=== PATIENT | male | born 1965 | race Caucasian/White ===

== ENCOUNTER 2019-06-04 10:47 | Observation (INO) | payer BC ==
[2019-06-04 11:17] LABS: ABS Eosinophils 0.1 10^3/ul (0-0.6); ABS Lymphocytes 1.1 10^3/ul (1.0-4.8); ABS Monocytes 0.5 10^3/ul (0-0.8); ABS Neutrophils 3.6 10^3/ul (1.5-7.7); Eosinophil % 1.2 %; Hematocrit 44 % (42-52); Hemoglobin 14.8 g/dL (14.0-18.0); Lymphocyte % 20.6 %; Mean Corpuscular HGB Conc 34 g/dL (31-36); Mean Corpuscular Hemoglobin 30 pg (27-31); Mean Corpuscular Volume 89 fL (80-94); Mean Platelet Volume 8.6 fL (7.4-10.4); Nucleated Red Blood Cells % 0.1; Platelet Count 220 10^3/uL (150-450); Red Blood Count 4.94 10^6 /uL (4.18-5.48); Red Cell Distribution Width 13 % (10-15); White Blood Count 5.3 10^3/uL (3.5-10.8)
[2019-06-04] MEDS ORDERED: Aspirin 81 mg CHEW TAB* 81 MG TAB.CHEW PO ONE (11:18)
--- NOTE | 2019-06-04 11:19 | ED ---
HPI Chest Pain - HPI Summary HPI Summary: Patient is a 54 y/o M presenting to the ED for a chief complaint of intermittent non-radiating left anterior chest pain that began on the morning of 06/04/19 around 05:30. Patient is present with his . He describes the chest pain as a burning sensation and rates his current chest pain as 1/10 in severity. Patient denies any fever, chills, diaphoresis, erythema of eyes, sore throat, SOB, cough, abdominal pain, N/V, dysuria, hematuria, myalgia, edema, rash, or dizziness. Patient took 2 NTG at home with some relief. He reports chest pain in the past that improved with exercise. He regularly runs for exercise. PMHx is significant for angina, coronary artery disease, and hypercholesterolemia. FMHx is significant for cardiac disease and aneurysm. He is unsure if he had an MN because of changes in exercise tolerance around the time that prior episodes of chest pain began. He states there was an attempt to place cardiac stents in the past without success. Patient sees Dr. Moore who he last saw 2 months ago. Patient believes he is due for a cardiac stress test. - History of Current Complaint Chief Complaint: EDChestPainROMI Time Seen by Provider: 06/04/19 10:53 Hx Obtained From: Patient Onset/Duration: Started Minutes Ago, Atraumatic, Still Present Timing: Intermittent Initial Severity: Mild Current Severity: Mild Pain Intensity: 1 Pain Scale Used: 0-10 Numeric Chest Pain Location: Left Anterior Chest Pain Radiates: No Character: Burning Aggravating Factor(s): Nothing Alleviating Factor(s): NTG 123, Other: - Exertion Associated Signs and Symptoms: Positive: Chest Pain. Negative: Dizziness, Shortness of Breath, Fever, Chills, Diaphoresis, Nausea, Cough, Abdominal Pain, Vomiting, Edema - Allergy/Home Medications Allergies/Adverse Reactions: Allergies Allergy/AdvReac Type Severity Reaction Status Date / Time fluticasone Allergy Itching Verified 06/04/19 13:25 phenytoin Allergy Swelling Verified 06/04/19 13:25 Of Face,Lips,& Throat salmeterol Allergy Itching Verified 06/04/19 13:25 valproic acid Allergy Blisters Verified 06/04/19 13:25 seasonal allergies Allergy Sneezing, Uncoded 05/11/16 13:05 Runny nose, Inflammed sinus cavity Home Medications: Home Medications Ranolazine [Ranolazine ER] 500 mg PO DAILY 06/04/19 [History Confirmed 06/04/19] PMH/Surg Hx/FS Hx/Imm Hx Previously Healthy: Yes Endocrine/Hematology History: Denies: Hx Diabetes Cardiovascular History: Reports: Hx Angina - in past,felt r/t to GERD, Hx Coronary Artery Disease, Hx Hypercholesterolemia Denies: Hx Hypertension, Hx Myocardial Infarction, Hx Valvular Heart Disease Respiratory History: Reports: Hx Asthma Denies: Hx Chronic Obstructive Pulmonary Disease (COPD) Musculoskeletal History: Reports: Hx Arthritis - LOWER BACK Denies: Hx Rheumatoid Arthritis, Hx Osteoporosis Sensory History: Reports: Hx Contacts or Glasses - READING GLASSES Denies: Hx Legally Blind, Hx Deafness, Hx Hearing Aid Opthamlomology History: Reports: Hx Contacts or Glasses - READING GLASSES Denies: Hx Legally Blind EENT History: Denies: Hx Deafness Neurological History: Reports: Hx Seizures - as a child, none for 20+ years - Surgical History Surgical History: Yes Surgery Procedure, Year, and Place: FX LT THUMB 1980 Hx Anesthesia Reactions: No Infectious Disease History: No Infectious Disease History: Denies: Hx Shingles, Hx Tuberculosis, History Other Infectious Disease, Traveled Outside the [place] in Last 30 Days - Family History Known Family History: Positive: Cardiac Disease, Other - Aneurysm - Social History Occupation: Employed Full-time Lives: With Family Alcohol Use: Occasionally Hx Substance Use: No Substance Use Type: Reports: None Hx Tobacco Use: No Smoking Status (MU): Never Smoked Tobacco Have You Smoked in the Last Year: No Review of Systems Negative: Fever, Chills, Skin Diaphoresis Negative: Erythema Negative: Sore Throat Positive: Chest Pain - Left anterior Negative: Shortness Of Breath, Cough Negative: Abdominal Pain, Vomiting, Nausea Negative: dysuria, hematuria Negative: Myalgia, Edema Negative: Rash Neurological: Other - Negative dizziness All Other Systems Reviewed And Are Negative: Yes Physical Exam - Summary Physical Exam Summary: Constitutional: Well-developed, Well-nourished, Alert.(-) Distressed Skin: Warm, Dry HENT: Normocephalic; Atraumatic Eyes: Conjunctiva normal Neck: Musculoskeletal ROM normal neck. (-) JVD, (-) Stridor, (-) Tracheal deviation Cardio: Rhythm regular, rate normal, Heart sounds normal; Intact distal pulses; The pedal pulses are 2+ and symmetric. Radial pulses are 2+ and symmetric. (-) Murmur Pulmonary/Chest wall: Effort normal. (-) Respiratory distress, (-) Wheezes, (-) Rales Abd: Soft, (-) tenderness, (-) Distension, (-) Guarding, (-) Rebound Musculoskeletal: (-) Edema Lymph: (-) Cervical adenopathy Neuro: Alert, Oriented x3 Psych: Mood and affect Normal Triage Information Reviewed: Yes Vital Signs On Initial Exam: Initial Vitals Temp Pulse Resp BP Pulse Ox 97.5 F 72 14 142/83 98 06/04/19 10:53 06/04/19 10:53 06/04/19 10:53 06/04/19 10:53 06/04/19 10:53 Vital Signs Reviewed: Yes Procedures - Sedation Patient Received Moderate/Deep Sedation with Procedure: No Diagnostics - Vital Signs Vital Signs Temp Pulse Resp BP Pulse Ox 06/04/19 10:53 97.5 F 72 14 142/83 98 - Laboratory Result Diagrams: 06/04/19 11:04 06/04/19 11:04 Lab Statement: Any lab studies that have been ordered have been reviewed, and results considered in the medical decision making process. - Radiology Chest X-ray Radiology Interpretation Completed By: Radiologist Summary of Radiographic Findings: Chest X-ray IMPRESSION: 1. No focal airspace opacification. 2. Although magnified, the cardiac silhouette appears slightly enlarged. Reviewed by Dr. Gannon. - CT Chest/Abdomen/Pelvis CTA CT Interpretation Completed By: Radiologist Summary of CT Findings: Chest/Abdomen/Pelvis CTA IMPRESSION: 1. NO AORTIC ANEURYSM OR DISSECTION IS IDENTIFIED. 2. CORONARY ARTERY DISEASE. 3. NO ACUTE OCCLUSIVE DISEASE OR SEVERE STENOSIS ALONG THE PROXIMAL BRANCHING VESSELS OF THE AORTA. Reviewed by Dr. Gannon. - EKG 10:50 Cardiac Rate: NL - 67 BPM EKG Rhythm: Sinus Rhythm ST Segment: Normal Ectopy: None Summary of EKG Findings: EKG at 10:50 shows 67 BPM with normal sinus rhythm, no STEMI. Reviewed and interpreted by Dr. Gannon. Chest Pain Course/Dx - Course Course Of Treatment: Patient is a 54 y/o M presenting to the ED for a chief complaint of intermittent non-radiating left anterior chest pain that began on the morning of 12/01/19 around 05:30. Patient is present with his . He describes the chest pain as a burning sensation and rates his current chest pain as 1/10 in severity. Patient denies any fever, chills, diaphoresis, erythema of eyes, sore throat, SOB, cough, abdominal pain, N/V, dysuria, hematuria, myalgia, edema, rash, or dizziness. Patient took 2 NTG at home with some relief. He reports chest pain in the past that improved with exercise. He regularly runs for exercise. PMHx is significant for angina, coronary artery disease, and hypercholesterolemia. FMHx is significant for cardiac disease and aneurysm. He is unsure if he had an MN because of changes in exercise tolerance around the time that prior episodes of chest pain began. He states there was an attempt to place cardiac stents in the past without success. Patient sees Dr. Moore who he last saw 2 months ago. Patient believes he is due for a cardiac stress test. On exam, unremarkable findings. In the ED course, patient was given aspirin 81 mg PO, nitroglycerin 0.4 mg SL, nitroglycerin 1 inch TOPICAL, and omnipaque 100 ml IV. Laboratory abnormal findings: glucose 105. EKG at 10: 50 shows 67 BPM with normal sinus rhythm, no STEMI. Chest X-ray IMPRESSION: 1. No focal airspace opacification. 2. Although magnified, the cardiac silhouette appears slightly enlarged. Chest/Abdomen/Pelvis CTA IMPRESSION: 1. NO AORTIC ANEURYSM OR DISSECTION IS IDENTIFIED. 2. CORONARY ARTERY DISEASE. 3. NO ACUTE OCCLUSIVE DISEASE OR SEVERE STENOSIS ALONG THE PROXIMAL BRANCHING VESSELS OF THE AORTA. Patients chest discomfort is out of character for coronary artery disease. There are no features or aortic dissection, but given the family history, patient will likely be admitted. At 13:35, patients case was reviewed by Zena Maria NP who agrees to admit the patient to [facility] with a diagnosis of chest pain. Patient will be admitted to [facility] with a diagnosis of chest pain. - Diagnoses Provider Diagnoses: Chest pain - Provider Notifications Discussed Care Of Patient With: Zena Maria - At 13:35, patients case was reviewed by Zena Maria NP who agrees to admit the patient to [facility] with a diagnosis of chest pain. Time Discussed With Above Provider: 13:35 Instructed by Provider To: Admit As Observation Discharge ED - Sign-Out/Discharge Documenting (check all that apply): Patient Departure - Admit - Discharge Plan Condition: Stable Disposition: ADMITTED TO [facility] Referrals: Jayden Zeng MD [Primary Care Provider] - - Attestation Statements Document Initiated by Scribe: Yes Documenting Scribe: Katya Godwin Provider For Whom Scribe is Documenting (Include Credential): Paul Gannon MD Scribe Attestation: Katya Briggs, scribed for Paul Gannon MD on 06/04/19 at 1339. Status of Scribe Document: Ready
[2019-06-04 11:28] LABS: Albumin 4.6 g/dL (3.2-5.2); Albumin/Globulin Ratio 1.8 (1-3); BUN/Creatinine Ratio 11.8 (8-20); Calcium 9.9 mg/dL (8.6-10.3); EGFR African American 102.5 (>60); EGFR Non-African American 84.7 (>60); Globulin 2.5 g/dL (2-4); Potassium 4.6 mmol/L (3.5-5.0); Total Bilirubin 0.6 mg/dL (0.2-1.0); Total Protein 7.1 g/dL (6.4-8.9)
[2019-06-04 11:30] LABS: Troponin I 0.01 ng/mL (<0.03)
[2019-06-04] MEDS ORDERED: Iohexol 350* (CONTRAST) 500 ML MDV IV ONE (11:32)
[2019-06-04] MEDS: Nitroglycerin TAB 0.4 MG* 0.4 MG TAB SL ONE ×2 (11:36→12:03)
[2019-06-04] MEDS ORDERED: Nitro 2% OINT* (Nitroglycerin) 1 INCH/PAK PAK TOPICAL ONE (12:15)
[2019-06-04] MEDS: Heparin VIAL(*) 5000 UNITS/ML VIAL (FIVE THOUSAND) SUBCUT SCH ×2 (15:56→20:45)
--- NOTE | 2019-06-04 17:17 | HP ---
CC: Dr. Zeng; Dr. Moore * [facility] MEDICINE HISTORY AND PHYSICAL: DATE OF ADMISSION: 06/04/19 PRIMARY CARE PROVIDER: Dr. Zeng. TAX ACCOUNTANT: Dr. Moore. ATTENDING PHYSICIAN: Dr. Tressa Gutierres * (dictation provided by Zena Maria NP ). CHIEF COMPLAINT: Chest pain. HISTORY OF PRESENT ILLNESS: Mr. Roger is a 54-year-old male with a past medical history of angina and known coronary artery disease with subtotally occluded right RCA and moderate lesion to LAD, who presents today to the hospital with concern for chest pain. Mr. Roger confirms that he had original stress testing and cardiac catheterization in our hospital in 2017, which as noted showed that he had a subtotal right RCA occlusion and moderate lesion to the LAD. At that time, the patient was transferred for consultation to [facility]. The patient states that angioplasty was attempted, but was unsuccessful there. The recommendation was that he could return if he was interested, but he has decided to pursue maximal medical therapy with Dr. Moore. Thus far, he had an abnormal stress echo in 2018 which was consistent with inferior ischemia, but this did show interval improvement from prior. He has since seen Cyndee Hernandez NP on 03/10/19, and at that time, he was doing well and described that he was jogging, running 3 to 5 miles a day at a 10 mile pace with no angina. He states that he has had a long symptom-free period until about 2 weeks ago when he again started having angina. He states actually that the angina is random and that it actually improves with activity. For this, he has taken up to 2 nitroglycerin tablets at a time with good success. This morning he awoke at 6 a.m. with chest discomfort, did not radiate into his arm or neck, it was not associated with diaphoresis or shortness of breath. He got up and did some chores around the home. He took 1 nitroglycerin, which was not effective. He took a second nitroglycerin that was effective; however, after 2 hours his chest pain returned and he grew more concerned and decided to come to the emergency room for evaluation. In the emergency room, Mr. Roger had a chest x-ray that showed no acute intrathoracic process. He had an EKG which showed a sinus rhythm with no evidence of ischemia. He had a chest, abdomen, and pelvis CTA that was negative. He had labs that showed a normal troponin and no other significant abnormality. His vitals are stable. He was given nitroglycerin x2 and now has a nitroglycerin patch and is chest pain free. PAST MEDICAL HISTORY: 1. Hyperlipidemia. 2. Hypertension. 3. Coronary artery disease. MEDICATIONS OUTPATIENT: 1. Albuterol inhaler p.r.n. 2. Mometasone 110 mcg metered dose inhaler 2 puffs p.o. b.i.d. p.r.n. 3. Mometasone nasal spray p.r.n. 4. Nitroglycerin p.r.n. 5. Ranexa ER 500 mg p.o. daily. 6. Amlodipine 5 mg p.o. daily. 7. Aspirin 81 mg p.o. daily. 8. Metoprolol succinate 25 mg p.o. q.a.m. 9. Rosuvastatin 40 mg p.o. daily. ALLERGIES: FLUTICASONE, PHENYTOIN, SALMETEROL, VALPROIC ACID. FAMILY HISTORY: The patient reports his maternal grandfather in his 50s related to heart disease. His father in his 70s related to an aneurysm. His mother is alive and well. SOCIAL HISTORY: The patient has never been a smoker, no report of alcohol or drug use. He lives with his Cary who is his healthcare proxy. REVIEW OF SYSTEMS: A 14-point review of systems was completed with Mr. Roger and all those not mentioned above were negative. PHYSICAL EXAMINATION GENERAL: Mr. Roger is sitting on the bed. Again, he is chest pain free. He is in no acute distress. His Cary is at the bedside. VITAL SIGNS: Temperature 97.5, pulse rate 58, respiratory rate 12, O2 saturation 97% on room air, blood pressure 121/84. HEENT: Extraocular movements are intact. LUNGS: Clear to auscultation bilaterally with no accessory muscle use and good aeration. HEART: S1, S2. No murmur, rub, or gallop and regular. ABDOMEN: Soft, nontender with bowel sounds positive x4. EXTREMITIES: No cyanosis or edema. NEUROLOGIC: He is alert. He is oriented x3. He moves all extremities equally. There is no facial asymmetry or focal weakness. SKIN: Intact. DIAGNOSTIC STUDIES/LAB DATA: Sodium 139, potassium 4.6, chloride 103, serum bicarbonate 30, BUN 11, creatinine 0.93, glucose 105, first troponin at 1104 is 0.01. WBC 5.3, hemoglobin 14.8, hematocrit 44, platelet count 220. Chest x-ray shows "no focal airspace opacification. Although magnified, the cardiac silhouette appears slightly enlarged." The EKG shows "a sinus rhythm with a heart rate of about 65 and no evidence of ischemia." The chest, abdomen , and pelvis CTA shows "no aortic aneurysm or dissection is identified. Coronary artery disease. No acute occlusive disease or severe stenosis along the proximal branching vessels of the aorta." ASSESSMENT: Mr. Roger is a 54-year-old male with no medical history of coronary artery disease with subtotal occlusion of the right right coronary artery and moderate lesion to the left anterior descending artery, who is on medical therapy and monitored by Dr. Moore, who presents today to the hospital with concern for chest pain at rest. Our plans are for observation in the hospital for the followin. Chest pain: The patient has been noticing chest pain, but has not been associated with activity. He wonders whether or not the chest pain could be related to the cold weather or provoked by cold weather in part. Regardless, his testing thus far is negative, his EKG is negative, troponin is negative. Plan is for q.3 hours troponin with EKGs x2. He will have aspirin in the morning. He will go on for an exercise nuclear stress test tomorrow a.m. I anticipate that he will need cardiac consultation after the stress test as I presume it would be abnormal based on his history, but I have not called Cardiology tonight based on the negative workup thus far. 2. Hypertension: Plan to continue amlodipine, metoprolol. 3. Hyperlipidemia: Plan to continue auto substitute for rosuvastatin. TIME SPENT: Approximately 60 minutes were spent on the admission of this patient, more than half the time was spent with the patient at the bedside reviewing the events leading up to this hospitalization, performing the physical examination, and reviewing my plan of care. ZENA MARIA NP [id number]/[facility] #: [id number] ORALIA
[2019-06-04] MEDS: Metoprolol Succinate XL TAB* 25 MG PO SCH (20:39)
[2019-06-04] MEDS: Ranolazine (NF) 500 MG TAB PO SCH (20:40)
[2019-06-05] MEDS: Heparin VIAL(*) 5000 UNITS/ML VIAL (FIVE THOUSAND) SUBCUT SCH ×2 (04:56→15:21)
[2019-06-05] MEDS ORDERED: Aspirin EC TAB* 81 MG TAB.EC PO SCH (09:00)
[2019-06-05] MEDS ORDERED: Metoprolol Succinate XL TAB* 25 MG PO SCH (09:00)
[2019-06-05] MEDS ORDERED: Atorvastatin* 80 MG TAB PO SCH (09:00)
[2019-06-05] MEDS ORDERED: CMC:Ranolazine (NF) 500 MG TAB PO SCH (09:00)
[2019-06-05] MEDS ORDERED: amLODIPine TAB* 5 MG PO SCH (09:00)
[2019-06-05] MEDS: Ranolazine (NF) 500 MG TAB PO SCH (10:52)
[2019-06-05] MEDS: Metoprolol Succinate XL TAB* 25 MG PO SCH (10:52)
[2019-06-05 11:54] VITALS: BP 115/70
--- NOTE | 2019-06-05 18:47 | CONS ---
CC: Dr. Zeng; Dr. Moore * CARDIOLOGY CONSULTATION: DATE OF CONSULT: 06/05/19 INDICATION FOR CONSULTATION: Chest pain, coronary artery disease. HISTORY OF PRESENT ILLNESS: The patient is a 54-year-old gentleman with a history of coronary artery disease, history of a known occluded right coronary artery and a moderate LAD lesion. The patient was admitted to the hospital yesterday with an episode of chest pain. The patient states that he was out of his house in the morning and started feeling some atypical chest pain. He took 1 sublingual nitroglycerin and then about 5 minutes later took a second sublingual nitroglycerin. His pain mostly resolved; however, later in the morning, his pain started to increase, and at that point, he decided to come to the emergency room. On arrival to the emergency room, his EKG did not show any significant changes from previous EKGs, definitely no evidence of ST segment elevation. His troponin levels were negative. This morning, the patient underwent an exercise nuclear stress test. The patient exercised for 13 minutes. He had no chest pain. He had some minor EKG changes, but nothing definitive for ischemia. His nuclear images did show a small to moderate area of ischemia to his inferior wall that was completely reversible on his resting images. This is consistent with his known occluded right coronary artery. In speaking with the patient this afternoon, he denies any chest pain or shortness of breath. No orthopnea or PND. No palpitations. No lightheadedness , dizziness, or syncope. As part of his workup, the patient got a CTA of his chest, abdomen, and pelvis that was negative, no evidence of pulmonary embolism. PAST MEDICAL HISTORY: Significant for: 1. Hypertension. 2. Hyperlipidemia. 3. Coronary artery disease. OUTPATIENT MEDICATIONS: 1. Albuterol inhaler nasal spray. 2. Ranexa 500 mg once a day. 3. Amlodipine 5 mg a day. 4. Aspirin 81 mg a day. 5. Metoprolol succinate 25 mg once a day. 6. Crestor 40 mg a day. ALLERGIES: PHENYTOIN, SALMETEROL, VALPROIC ACID. FAMILY HISTORY: His grandfather in his 50s of heart disease. Father in his 70s of an aneurysm. His mother is alive and well. SOCIAL HISTORY: Denies tobacco or alcohol use. He exercises on a regular basis. He is . REVIEW OF SYSTEMS: Negative for fevers and chills. Negative for changes in bowel or bladder habits. Negative for change in weight. Other 12-point review is unremarkable. PHYSICAL EXAMINATION: Height is 61 inches, weight 231 pounds, temperature 97.9 , heart rate is 67, blood pressure 128/65, respiratory rate is 16, oxygen saturation 99% on room air. Sclerae anicteric. Oropharynx is pink without erythema. Carotids are 2+ without bruits. JVD is normal. Thyroid is normal. Cardiac Exam: S1, S2 without any murmurs, rubs, or gallops. Lungs are clear to auscultation bilaterally. There is no dullness to percussion. Abdomen is soft, nontender, nondistended with normoactive bowel sounds. Extremities show no edema. He has 2+ pulses throughout. The patient is awake, alert, and oriented. He moves all 4 extremities equally. LABORATORY STUDIES: Chemistry is within normal limits. Troponins are negative x4. CBC within normal limits. IMPRESSION: This is a 54-year-old gentleman with a history of known coronary artery disease, who came to the hospital because of angina. The patient ruled out for a myocardial infarction. He had no ischemic EKG changes. His exercise nuclear stress test is as to be expected with his known anatomy. At this point, I do not think any other cardiac testing is necessary. I do not think the patient needs a cardiac catheterization. The patient will follow up as an outpatient with Dr. Moore regarding ongoing medical care. [id number]/[facility] #: [id number] MTDD
--- NOTE | 2019-06-05 19:53 | DS ---
CC: Dr. Jayden Zeng; Dr. Panda Moore * DISCHARGE SUMMARY: DATE OF ADMISSION: 06/04/19 DATE OF DISCHARGE: 06/05/19 PRIMARY CARE PROVIDER: Dr. Jayden Zeng. LOGGING EQUIPMENT OPERATOR: Dr. Panda Moore. ATTENDING PHYSICIAN: Dr. Tomas Galeano.* (DICTATED BY LIZBETH MICHAUD NP) PRIMARY DIAGNOSIS: 1. Chest pain, presumed cardiac in a patient with known coronary artery disease. SECONDARY DIAGNOSES: 1. Hyperlipidemia. 2. Hypertension. STUDIES WHILE IN THE HOSPITAL: 1. Chest x-ray on 06/04/19 reads as no focal airspace opacification. Although magnified, the cardiac silhouette appears slightly enlarged. 2. EKG on 06/04/19 shows normal sinus rhythm with a rate of 67, first degree AV block, minimal ST elevation in anterior leads. 3. Chest, abdomen, and pelvis CTA on 06/04/19 reads as no aortic aneurysm or dissection is identified. Coronary artery disease. No acute occlusive disease or severe stenosis along the proximal branching vessels of the aorta. 4. Nuclear cardiac stress test done on 06/05/19 reads as moderate region of stress- induced ischemia at the junction of the inferior and lateral gama from the apical through the basilar segments. Associated hypokinesis. The left ventricular ejection fraction remains within normal limits at 61%. Assessment is intermediate risk based on nuclear portion. HISTORY OF PRESENT ILLNESS AND HOSPITAL COURSE: Mr. Roger is a 54-year-old male with past medical history of hypertension, hyperlipidemia and coronary artery disease, who presented to the emergency room on 06/04/19 with complaints of chest pain. Please see the history and physical by Zena Maria NP for a complete summary of the events leading up to this hospitalization. In short, the patient does have known coronary artery disease with a subtotal RCA occlusion and moderate lesion to the LAD. In 2017, the patient had a cardiac catheterization at [facility], angioplasty was attempted, but was unsuccessful at that point. Since that time, the patient has been on maximal medical therapy with his top waddy, Dr. Moore. He reportedly has been exercising daily until about 2 weeks ago when he started having some angina. He noted that sometimes it is improved with activity, though also improved with nitro. On the morning of presentation, he awoke with chest pain and took 2 nitro which were ineffective and so he presented to the emergency room. In the emergency room, he had imaging as noted above. He did have a troponin noted to be negative at 0.01. Lab work was otherwise unremarkable and vital signs were stable. Because of the patient's history, he was admitted by the hospitalist service. The patient's pain resolved in the emergency room last night and he did not have any recurrent pain overnight. He had an exercise nuclear cardiac stress test today. He was able to complete 13 minutes without chest pain. Nuclear portion as noted above is intermediate risk due to some stress-induced ischemia in the inferior and lateral gama. This was not unexpected based on his history. I did speak with Cardiology today and they also felt as though this finding was consistent with his known occlusive disease and that there would be no indication for intervention at this time and no indication for any medication changes. They advised that he was appropriate for discharge with outpatient followup. The patient reports feeling well. He is anxious to return home. On exam, he is alert and oriented x4. He has no focal neurological deficits. His heart has a regular rate and rhythm without murmurs, rubs, or gallops. Lungs are clear to auscultation without rhonchi, wheezes, or rubs. Mr. Roger is stable for discharge today. Most recent vital signs are as follows : Temp 97.6, heart rate 62, respiratory rate 16, oxygen saturation 99% on room air, blood pressure 115/70. DISCHARGE MEDICATIONS: Continued medications: 1. Amlodipine 5 mg p.o. daily. 2. Aspirin 81 mg p.o. daily. 3. Metoprolol succinate 25 mg p.o. b.i.d. 4. Ranolazine 500 mg p.o. b.i.d. 5. Rosuvastatin 40 mg p.o. daily. 6. Albuterol 2 puffs q.4 hours p.r.n. shortness of breath and wheezing. 7. Mometasone 110 mcg 2 puffs b.i.d. 8. Mometasone 1 to 2 sprays both nares daily p.r.n. allergy symptoms. 9. Nitro 0.3 mg sublingual q.5 minutes p.r.n. angina. DISCHARGE PLAN: Mr. Roger will be discharged home. Activity will be as tolerated. Diet will be heart healthy. Medications are noted above. The patient can continue his usual medications without any changes. He can continue exercising as long as he does not experience any angina with activity. He will need to follow up with his top waddy and should do so in the next 1 to 2 weeks. He will also need to follow up with his primary care provider in the next 4 to 7 days. He should return to the emergency room or nearest hospital for any worsening of symptoms, shortness of breath, lightheadedness, dizziness, chest discomfort, high fevers, chills, night sweats, loss of consciousness, or any other worrisome signs or symptoms. DISCHARGE CONDITION: Stable. DISCHARGE DISPOSITION: Home. This is a summarized report of a complex medical history and hospital stay. For further details, please see the entire medical record. TIME SPENT: Approximately 40 minutes were spent on this discharge. LIZBETH MICHAUD NP [id number]/CPS #: [id number] [place]
== END 2019-06-05 15:23 | disposition home or self-care (01) ==
LOC: ED 10:47 → MEDTELE 13:35
PROVIDERS: ADMIT Internal Medicine; ATTEND Internal Medicine
DX: R07.9 Chest pain, unspecified (principal); E78.5 Hyperlipidemia, unspecified; I25.10 Atherosclerotic heart disease of native coronary artery without angina pectoris; I10 Essential (primary) hypertension; I44.0 Atrioventricular block, first degree; Z79.82 Long term (current) use of aspirin; Z79.899 Other long term (current) drug therapy
CPT/HCPCS: 36415; 71045; 71275; 74174; 78452; 80053; 83605; 84484; 85025; 93005; 93017; 96372; 99284; A9270-GY; A9502; G0378; J1644; Q9967